=== PATIENT | female | born 1990 | race African-American/Black ===

== ENCOUNTER 2019-11-26 13:42 | Emergency (ER) | payer OTHER ==
[~2019-11-26] VITALS: Ht 172.7 cm; Wt 99.8 kg
--- NOTE | 2019-11-26 13:53 | NUR ---
ERMD at bedside for MSE
--- NOTE | 2019-11-26 13:59 | NUR ---
Patient discharged to home in stable conditon. Written and verbal after care instructions given. Patient verbalizes understanding of instructions. Patient ambulated with stable gait.
[2019-11-26 14:00] VITALS: BP 145/85
== END 2019-11-26 14:00 | disposition home or self-care (01) ==
LOC: ER 13:47
DX: J20.9 Acute bronchitis, unspecified (principal)
CPT/HCPCS: A4663

== ENCOUNTER 2020-02-05 20:58 | Emergency (ER) | payer OTHER ==
[~2020-02-05] VITALS: Ht 172.7 cm; Wt 97.5 kg
--- NOTE | 2020-02-05 22:00 | NUR ---
Patient discharged to home in stable condition. Written and verbal after care instructions given. Patient verbalizes understanding of instructions. Stressed follow up or return to ER for worsening s/s.
[2020-02-05 23:50] VITALS: BP 125/76
== END 2020-02-05 23:50 | disposition home or self-care (01) ==
LOC: ER 21:00
DX: R05 Cough (principal); J02.9 Acute pharyngitis, unspecified
CPT/HCPCS: A4663